=== PATIENT | male | born 1965 | race Caucasian/White ===

== ENCOUNTER 2017-11-23 17:49 | Emergency (ER) | payer BC ==
[2017-11-23] MEDS ORDERED: Adacel Vial IM ONE ×2 (18:03→18:12)
[2017-11-23] MEDS ORDERED: BACIGUENT PACKET TP ONE (18:04)
[2017-11-23] MEDS ORDERED: BACIGUENT PACKET ONE (18:11)
--- NOTE | 2017-11-23 18:11 | ERPHSYRPT ---
- History of Present Illness Time Seen by Provider: 11/23/17 18:04 Source: patient Exam Limitations: no limitations Physician History: 52-year-old white male arrives with complaint that he stepped on a keira nail proximally one half hour prior to arrival. Patient states his tetanus is not up-to-date and he wants his tetanus updated. He denies any other complaints. Past medical history is negative. Past surgical history is negative. Method of Injury: other (stepped on a keira nail left foot) Occurred: just prior to arrival Quality: other (minimal pain) Lower Extremities Pain: foot: left Modifying Factors: Improves With: nothing Associated Symptoms: none - Review of Systems Constitutional: No Fever, No Chills Eyes: No Symptoms Ears, Nose, & Throat: No Symptoms Respiratory: No Cough, No Dyspnea Cardiac: No Chest Pain, No Edema, No Syncope Abdominal/Gastrointestinal: No Abdominal Pain, No Nausea, No Vomiting, No Diarrhea Genitourinary Symptoms: No Dysuria Musculoskeletal: Other (puncture wound left foot) Skin: Other (Small puncture wound left foot) Neurological: No Dizziness, No Focal Weakness, No Sensory Changes Psychological: No Symptoms Endocrine: No Symptoms All Other Systems: Reviewed and Negative - Past Medical History Pertinent Past Medical History: No - Physical Exam General Appearance: alert Eyes, Ears, Nose, Throat Exam: moist mucous membranes Neck Exam: non-tender, supple Cardiovascular/Respiratory Exam: chest non-tender, normal breath sounds, regular rate/rhythm, no respiratory distress Gastrointestinal/Abdominal Exam: non-tender, guarding Back Exam: normal inspection, No vertebral tenderness Hips Exam: bilateral: non-tender, normal inspection, normal range of motion, no evidence of injury Legs Exam: bilateral leg: non-tender, normal inspection, normal range of motion , no evidence of injury Knees Exam: bilateral knee: non-tender, normal inspection, normal range of motion, no evidence of injury Ankle Exam: bilateral ankle: non-tender, normal inspection, normal range of motion, no evidence of injury Foot Exam: right foot: normal inspection, left foot: other (Small, barely visible puncture wound plantar surface left foot overlying the fourth tofifth M TP joint), bilateral foot: non-tender, normal range of motion, no evidence of injury Neuro/Tendon Exam: normal sensation, normal motor functions Mental Status Exam: alert, oriented x 3, cooperative Skin Exam: normal color, warm, dry, other (Small, barely visible puncture wound plantar surface left foot overlying the fourth to fifth MTP joint) SpO2 Interpretation: normal (98%) - Course Nursing assessment & vital signs reviewed: Yes Ordered Tests: Active Orders 24 hr Category Date Time Status Wound Care STAT Care 11/23/17 18:04 Active Medication Summary Generic Name Dose Route Start Last Admin Trade Name Freq PRN Reason Stop Dose Admin Bacitracin Zinc 0.9 gm 11/23/17 18:04 Baciguent Packet TP 11/23/17 18:05 STAT ONE Discontinued Medications Generic Name Dose Route Start Last Admin Trade Name Freq PRN Reason Stop Dose Admin Diphtheria/Tetanus/Acell Pertussis 0.5 ml 11/23/17 18:03 Adacel Vial IM 11/23/17 18:04 .ONCE ONE - Progress Progress: improved Progress Note: 11/23/17 18:08 This is a 52-year-old white male arrives with complaint of puncture wound of his left foot. He states that he stepped on a keira nail approximately one half hour prior to arrival. Patient states his tetanus is not up to date. He would like his tetanus updated. Patient apparently has a father who had had tetanus in the past. Patient is denying any other complaints. I asked the nurse clean the left foot apply bacitracin and obtain the patient's DTaP. - Departure Time of Disposition: 18:09 Departure Disposition: Home Clinical Impression: Puncture wound of left foot Qualifiers: Encounter type: initial encounter Qualified Code(s): S91.332A - Puncture wound without foreign body, left foot, initial encounter Condition: Fair Critical Care Time: No Referrals: JAVIER PERALES [Primary Care Provider] - Additional Instructions: Return home. Bacitracin to puncture wound until healed. Tylenol every 4 hours as needed for pain. Follow-up with your family doctor or return if problems. Return for acute distress or for severe symptoms.
[2017-11-23 18:28] VITALS: BP 174/88; PULSE 72; O2SAT 98
== END 2017-11-23 18:27 | disposition home or self-care (01) ==
LOC: ED 17:49
DX: S91.332A Puncture wound without foreign body, left foot, initial encounter (principal); W22.8XXA Striking against or struck by other objects, initial encounter; W45.0XXA Nail entering through skin, initial encounter; Y93.01 Activity, walking, marching and hiking
CPT/HCPCS: 90471; 90715; 99283; A9270-GY

== ENCOUNTER 2019-02-15 11:46 | Emergency (ER) | payer BC ==
[2019-02-15 11:56] VITALS: O2SAT 98
[2019-02-15] MEDS ORDERED: TETRACAINE 0.5% STERI-UNIT SOL OP ONE (12:45)
[2019-02-15] MEDS ORDERED: Fluor-I-Strip/Ful-Flo OP ONE ×2 (12:45→13:13)
[2019-02-15] MEDS ORDERED: Eye-Stream Solution ONE (12:45)
[2019-02-15 13:13] VITALS: BP 132/81; PULSE 90
[2019-02-15] MEDS ORDERED: Eye-Stream Solution OP ONE (13:13)
--- NOTE | 2019-02-15 13:13 | ERPHSYRPT ---
- History of Present Illness Time Seen by Provider: 02/15/19 12:47 Source: patient Exam Limitations: no limitations Patient Subjective Stated Complaint: Pt states "It felt like i had something in my right eye and I rubbed it and now it feels like I have a scratch in there." Triage Nursing Assessment: Pt presnted alert and oriented X 3, skin pwd Pt ambulates with an upright steady giat, able to speak in clear full sentences Pt right eye slightly red and swollen. Physician History: 53 yo presented after rubbing right eye 2 days ago, was painful yesterday with redness and now is having some swelling around but redness and pain are better. no visual disturbance.doesnt use contacts. uptodate with tetanus Timing/Duration: day(s) (2) Location: right eye Severity: moderate Apparent Injury: yes Associated Symptoms: pain, burning, itching, redness, eyelid swelling, No decreased vision, No blurred vision, No double vision Visual Assistive Devices: None Allergies/Adverse Reactions: No Known Drug Allergies Allergy (Unverified 11/23/17 18:13) Hx Tetanus, Diphtheria Vaccination/Date Given: Yes Hx Influenza Vaccination/Date Given: No Hx Pneumococcal Vaccination/Date Given: No Immunizations Up to Date: Yes - Review of Systems Constitutional: No Symptoms Eyes: Discharge, Eye Pain, Eye Redness Ears, Nose, & Throat: No Symptoms Respiratory: No Symptoms Cardiac: No Symptoms Abdominal/Gastrointestinal: No Symptoms Genitourinary Symptoms: No Symptoms Musculoskeletal: No Symptoms Skin: No Symptoms Neurological: No Symptoms Endocrine: No Symptoms Hematologic/Lymphatic: Easy Bruising - Past Medical History Pertinent Past Medical History: No - Past Surgical History Past Surgical History: Yes Musculoskeletal: Orthopedic Surgery Other Surgical History: broken arm - Social History Smoking Status: Never smoker Exposure to second hand smoke: Yes Drug Use: none Patient Lives Alone: No - Nursing Vital Signs Nursing Vital Signs: Initial Vital Signs Temperature 98.2 F 02/15/19 11:52 Pulse Rate 100 H 02/15/19 11:52 Respiratory Rate 16 02/15/19 11:52 Blood Pressure 173/80 02/15/19 11:52 O2 Sat by Pulse Oximetry 98 02/15/19 11:52 Pain Scale Pain Intensity 4 - Physical Exam General Appearance: no apparent distress, alert Vision Acuity Degree Evaluation Phase: Uncorrected Vision Acuity Right Eye: 20/50 Vision Acuity Left Eye: 20/50 Eye Exam: right eye: corneal abrasion, eyelid inflammation, bilateral eye: normal inspection, PERRL, EOMI Ears, Nose, Throat Exam: normal ENT inspection, TMs normal Neck Exam: normal inspection Respiratory Exam: normal breath sounds, lungs clear Cardiovascular Exam: regular rate/rhythm, normal heart sounds Neurologic: alert, oriented x 3, cooperative Skin Exam: normal color SpO2: 98 O2 Delivery: Room Air - Course Nursing assessment & vital signs reviewed: Yes Ordered Tests: Medication Summary Discontinued Medications Generic Name Dose Route Start Last Admin Trade Name Isi PRN Reason Stop Dose Admin Eye Irrigation Solution Confirm 02/15/19 12:45 Eye-Stream Solution Administered 02/15/19 12:46 Dose 30 ml .ROUTE .STK-MED ONE Fluorescein Sodium Confirm 02/15/19 12:45 Jifch-P-Cmbdz/Ful-Hermes Administered 02/15/19 12:46 Dose 1 mg OP .STK-MED ONE Tetracaine HCl Confirm 02/15/19 12:45 Tetracaine 0.5% Steri-Unit Trish Administered 02/15/19 12:46 Dose 4 ml OP .STK-MED ONE - Progress Progress: unchanged Progress Note: 02/15/19 13:12 after tetracaine , flourescene stain showed uptake in the 7-9 oclock position. will treat with ofloxacin eye drops and out patient ophthalmology/optometry follow up. Counseled pt/family regarding: diagnosis, need for follow-up - Departure Departure Disposition: Home Clinical Impression: Scratch of cornea Qualifiers: Encounter type: initial encounter Laterality: right Qualified Code(s): S05.01XA - Injury of conjunctiva and corneal abrasion without foreign body, right eye, initial encounter Condition: Stable Critical Care Time: No Referrals: JAVIER PERALES [Primary Care Provider] - Instructions: Foreign Body in Eye (DC), Corneal Abrasion (DC) Additional Instructions: follow up with production supv/line palletizer for re evaluation in the morning. take tylenol/ibuprofen as needed. return for any worsening. Prescriptions: Ofloxacin Ophth 5 ml [Ocuflox OPHTHALMIC 5 ML] 2 misc OP QID #1 bottle
[2019-02-15] MEDS ORDERED: TETRACAINE 0.5% STERI-UNIT SOL OP STA (13:14)
== END 2019-02-15 13:41 | disposition home or self-care (01) ==
LOC: ED 11:46
DX: S05.01XA Injury of conjunctiva and corneal abrasion without foreign body, right eye, initial encounter (principal)
CPT/HCPCS: 99283; A9270-GY

== ENCOUNTER 2024-09-21 08:28 | Emergency (ER) | payer BC ==
[2024-09-21 08:38] VITALS: BP 176/99; PULSE 69; TEMP 97.4
[2024-09-21] MEDS ORDERED: Ntg 0.2MG/Ml in D5W GLASS*** 250 ML IV ONE (08:44)
[2024-09-21] MEDS ORDERED: Heparin 25,000 units/D5W: USE ORDER SET PROTO 25,000 UNITS/250 ML BAG IV ONE (08:44)
[2024-09-21] MEDS ORDERED: HEPARIN 5000 UNITS/0.5 ML (HIGH RISK MED) ONE (08:44)
[2024-09-21] MEDS ORDERED: BABY ASPIRIN 81 MG CHEW ONE (08:44)
[2024-09-21 08:45] LABS: BASOPHIL % 0.4 % (0.2-1.2); Basophil (Absolute #) 0.03 x10^3/uL (0.01-0.08); Eosinophil (Absolute #) 0.06 x10^3/uL (0.04-0.54); Hematocrit 44.6 % (40.1-51.0); Hemoglobin 15.3 g/dL (13.7-17.5); IMMATURE GRAN # 0.03 x10^3u/L (0.001-0.031); IMMATURE GRAN % 0.4 % (0.001-0.429); Lymphocyte (Absolute #) 1.58 x10^3/uL (1.32-3.57); Mean Corpuscular Hemoglobin 30.4 pg (25.7-32.2); Mean Corpuscular Hgb Concent. 34.3 g/dL (32.3-36.5); Monocyte (Absolute #) 0.44 x10^3/uL (0.30-0.82); NUCLEATED RBC # 0.00 x10^3u/L (0.00-0.012); NUCLEATED RBC % 0.0 % (0.00-0.2); Platelet Count 217 x10^3/uL (163-337); Red Blood Count 5.04 x10^6/uL (4.63-6.08); White Blood Count 7.2 x10^3/uL (4.23-9.07)
[2024-09-21] MEDS: Ntg 0.2MG/Ml in D5W GLASS*** 250 ML IV PRN (08:45)
[2024-09-21] MEDS: BABY ASPIRIN 81 MG CHEW PO ONE (08:45)
--- NOTE | 2024-09-21 08:51 | ERPHSYRPT ---
- History of Present Illness Time Seen by Provider: 09/21/24 08:46 Source: patient Exam Limitations: no limitations Patient Subjective Stated Complaint: chest pain Triage Nursing Assessment: pt brought to the ER by his , hypertensive, rates pain as 5/10, ischemia shown on EKG, denies SOB, chest pain radiates to the left shoulder and down the left arm, pulses normal, skin n/w/d Physician History: Patient is a 59-year-old male diabetic, BMI of 39.5 presents to the emergency department for evaluation of chest pain. Chest pain started this morning. Pain described as an ache that radiates to his left shoulder and left arm. No associated nausea vomiting or diaphoresis at this time. Symptoms are constant. Symptoms are moderate in intensity. No specific worsening improving factors. Patient voices no other complaints or concerns at this time. Portions of this note were created with voice recognition technology. There may be grammatical, spelling, punctuation or sound alike errors Timing/Duration: today Severity: moderate Associated Symptoms: denies symptoms Allergies/Adverse Reactions: No Known Drug Allergies Allergy (Verified 09/21/24 08:38) Home Medications: Losartan Potassium [Cozaar] 25 mg PO DAILY 09/21/24 [History] Paroxetine HCl 20 mg [Paxil 20 MG] 20 mg PO DAILY 09/21/24 [History] Hx Tetanus, Diphtheria Vaccination/Date Given: Yes Hx Influenza Vaccination/Date Given: No Hx Pneumococcal Vaccination/Date Given: No Travel Risk - International Travel Have you traveled outside of the country in past 3 weeks: No - Emerging Infectious Disease Are you exhibiting symptoms associated with any current EIDs: No - Review of Systems Constitutional: No Symptoms, No Fever, No Chills Eyes: No Symptoms Ears, Nose, & Throat: No Symptoms Respiratory: No Symptoms, No Cough, No Dyspnea Cardiac: No Symptoms, No Chest Pain, No Edema, No Syncope Abdominal/Gastrointestinal: No Symptoms, No Abdominal Pain, No Nausea, No Vomiting, No Diarrhea Genitourinary Symptoms: No Symptoms, No Dysuria Musculoskeletal: No Symptoms, No Back Pain, No Neck Pain Skin: No Symptoms, No Rash Neurological: No Symptoms, No Dizziness, No Focal Weakness, No Sensory Changes Psychological: No Symptoms Endocrine: No Symptoms Hematologic/Lymphatic: No Symptoms Immunological/Allergic: No Symptoms All Other Systems: Reviewed and Negative - Past Medical History Pertinent Past Medical History: Yes Cardiac History: Hypertension Endocrine Medical History: Diabetes Type II, Hypothyroidism - Past Surgical History Past Surgical History: Yes Musculoskeletal: Orthopedic Surgery Other Surgical History: broken arm - Social History Smoking Status: Never smoker Exposure to second hand smoke: Yes Drug Use: none - Social Determinants of Health Will the patient participate in the screening: Yes Do you worry about a steady place to live?: No Do you have any problems with any of the following?: No known problems In the past 12 months,have you had to go without utilities?: No Transportation Issues: No Has anyone in your support network made you feel unsafe?: No Have you or anyone in your house had to go w/o enough food: No - Nursing Vital Signs Nursing Vital Signs: Initial Vital Signs Temperature 97.4 F 09/21/24 08:32 Pulse Rate 69 09/21/24 08:32 Blood Pressure 176/99 09/21/24 08:32 O2 Sat by Pulse Oximetry 99 09/21/24 08:32 Pain Scale Pain Intensity 5 - Physical Exam General Appearance: no apparent distress, alert Eye Exam: PERRL/EOMI, eyes nml inspection Ears, Nose, Throat Exam: normal ENT inspection, moist mucous membranes Neck Exam: normal inspection, full range of motion Respiratory Exam: normal breath sounds, lungs clear, airway intact, No respiratory distress Cardiovascular Exam: regular rate/rhythm, normal heart sounds, normal peripheral pulses Gastrointestinal/Abdomen Exam: soft, normal bowel sounds, No tenderness, No mass Back Exam: normal inspection, normal range of motion, No CVA tenderness, No vertebral tenderness Extremity Exam: normal inspection Neurologic Exam: alert, oriented x 3, cooperative, normal mood/affect, sensation nml, No motor deficits Skin Exam: normal color, warm, dry, No rash Lymphatic Exam: No adenopathy SpO2 Interpretation: normal SpO2: 99 O2 Delivery: Room Air - Course Nursing assessment & vital signs reviewed: Yes EKG Interpreted by Me: RATE (72), Sinus Rhythm, NORMAL AXIS, NORMAL INTERVALS, NORMAL QRS (ST segment depression inferiorly with associated elevation anterior laterally.) - Radiology Exams Chest X-ray Interpretation: Interpreted by me (No acute findings on chest x-ray) Ordered Tests: Active Orders 24 hr Category Date Time Status Program Strategist STAT Care 09/21/24 08:38 Active EKG-ER Only STAT Care 09/21/24 08:38 Active IV Insertion STAT Care 09/21/24 08:38 Active Pulse Oximetry (ED) STAT Care 09/21/24 08:38 Active CHEST 1 VIEW (PORTABLE) Stat Exams 09/21/24 08:38 Taken CBC W DIFF Stat Lab 09/21/24 08:40 Completed CMP Stat Lab 09/21/24 08:40 Received NT PRO BNPII Stat Lab 09/21/24 08:40 Received TROPONIN Q4H Lab 09/21/24 08:40 Received TROPONIN Q4H Lab 09/21/24 12:45 Ordered TROPONIN Q4H Lab 09/21/24 16:45 Ordered UA W/RFX UR CULTURE Stat Lab 09/21/24 08:38 Ordered Medication Summary Generic Name Dose Route Start Last Admin Trade Name Freq PRN Reason Stop Dose Admin Nitroglycerin/Dextrose 250 mls @ 1.5 mls/hr 09/21/24 08:39 09/21/24 08:45 Ntg 0.2mg/Ml In D5w Glass IV 10/21/24 08:38 5 mcg/min .Q24H PRN 1.5 mls/hr CHEST PAIN Administration Protocol 5 MCG/MIN Discontinued Medications Generic Name Dose Route Start Last Admin Trade Name Freq PRN Reason Stop Dose Admin Aspirin 243 mg 09/21/24 08:40 09/21/24 08:45 Aspirin 81 Mg Tab.Chew PO 09/21/24 08:41 243 mg STAT ONE Administration Aspirin Confirm 09/21/24 08:44 Aspirin 81 Mg Tab.Chew Administered 09/21/24 08:45 Dose 243 mg .ROUTE .STK-MED ONE Heparin Sodium (Beef Lung) Confirm 09/21/24 08:44 Heparin 5000 Units/0.5 Ml 5,000 Unit/0.5 Ml Syr Administered 09/21/24 08:45 Dose 5,000 unit .ROUTE .STK-MED ONE Heparin Sodium/Dextrose Confirm 09/21/24 08:44 Heparin 25,000 Units/D5w: Use Order Set Branden Administered 09/21/24 08:45 Dose 25,000 units in 250 mls @ ud IV .STK-MED ONE Lab/Rad Data: Laboratory Result Diagrams 09/21/24 08:40 Laboratory Results 09/21/24 Range/Units 08:40 WBC 7.2 (4.23-9.07) x10^3/uL RBC 5.04 (4.63-6.08) x10^6/uL Hgb 15.3 (13.7-17.5) g/dL Hct 44.6 (40.1-51.0) % MCV 88.5 (79.0-92.2) fL MCH 30.4 (25.7-32.2) pg MCHC 34.3 (32.3-36.5) g/dL RDW 13.2 (11.6-14.4) % Plt Count 217 (163-337) x10^3/uL MPV 11.1 (9.4-12.4) fL Gran % 70.2 H (34.0-67.9) % Immature Gran % (Auto) 0.4 (0.001-0.429) % Nucleat RBC Rel Count 0.0 (0.00-0.2) % Eos # (Auto) 0.06 (0.04-0.54) x10^3/uL Immature Gran # (Auto) 0.03 (0.001-0.031) x10^3u/L Absolute Lymphs (auto) 1.58 (1.32-3.57) x10^3/uL Absolute Monos (auto) 0.44 (0.30-0.82) x10^3/uL Absolute Nucleated RBC 0.00 (0.00-0.012) x10^3u/L Lymphocytes % 22.1 (21.8-53.1) % Monocytes % 6.1 (5.3-12.2) % Eosinophils % 0.8 (0.8-7.0) % Basophils % 0.4 (0.2-1.2) % Absolute Granulocytes 5.02 (1.78-5.38) x10^3/uL Basophils # 0.03 (0.01-0.08) x10^3/uL - Progress Progress: improved Progress Note: Patient is a 59-year-old male BMI of 39.5 presents to our emergency department for evaluation of chest pain that started this morning. Pain radiating to his arm. Patient took 1 aspirin this morning. Upon arrival to our ED initial EKG reveals ST elevation at the anterior lateral leads with reciprocal changes inferiorly. Repeat EKG revealed dynamic changes. Patient received an additional 3 aspirin nitro drip and heparin bolus with a drip as well. STEMI called. I spoke to ER physician Dr. Quintana at [facility] on 8:25 AM. Transfer accepted. Patient advised of the concerns and the significant changes on the EKG. I independently reviewed the chest x-ray. No acute findings observed. at bedside was informed as well. Patient states he has a history of hypothyroidism. Patient has a underwear cutter Dr. Epperson that he has seen in the past for heart palpitations. The palpitations at that point were determined to be related to his hypothyroidism. Patient has not had cholesterol checked in some time. Given patient's chest pain cardiac risk factors EKG changes patient transferred to higher level of care. Plan of care discussed with patient and family. They agree to transfer to [facility] for further evaluation and treatment. Portions of this note were created with voice recognition technology. There may be grammatical, spelling, punctuation or sound alike errors Complexity of problem addressed is moderate acute complicated. Critical care time is just greater than 30 minutes. Immediate intervention required to prevent further deterioration as patient is experiencing a ST segment elevation myocardial infarction. Complexity of data reviewed and analyzed as extensive. Test ordered test reviewed results analyzed and correlated clinically with history and physical exam. Risk of complication or risk of morbidity/mortality of patient management is high. Patient requires transfer to higher level of care. Vital stable. Time spent to transfer patient approximately 20 minutes. Plan of care established for shared decision making. No social determinants of health present to impede follow-up. Portions of this note were created with voice recognition technology. There may be grammatical, spelling, punctuation or sound alike errors 09/21/24 09:01 Counseled pt/family regarding: lab results, diagnosis, rad results - Departure Departure Disposition: Transfer Clinical Impression: Chest pain, Acute coronary syndrome, STEMI (ST elevation myocardial infarction) Condition: Stable Critical Care Time: Yes Critical Care Time(excluding separately billable procedures): Critical 30-74 mins
[2024-09-21 09:08] LABS: Calcium 9.4 mg/dL (8.4-10.2); Carbon Dioxide 28.0 mmol/L (22-30); Creatinine 1 1.11 mg/dL (0.66-1.25); EST GLOMERULAR FILTRATION RATE 75.6 ML/MIN; Glucose 149.0 mg/dL (74-106); NT PRO BNPII 85.0 pg/mL (<300); Potassium 4.1 mmol/L (3.5-5.1); SGOT/AST 24.0 U/L (17-59); SGPT/ALT 28.0 U/L (0-50); Total Protein 8.0 g/dL (6.3-8.2)
--- NOTE | 2024-09-21 09:11 | XRAY ---
Indication: Pain. Comparison: March 24, 2021 Portable apical lordotic chest inflated and remains clear. Heart not enlarged for AP portable technique. Bony thorax intact again with mild degenerative changes. No new/acute findings.
[2024-09-21 09:12] VITALS: O2SAT 99
[2024-09-21 09:32] LABS: INR 0.98 (0.8-3.0); PROTIME 10.7 SECONDS (9.4-12.5); PTT 24.2 SECONDS (25.1-36.5)
== END 2024-09-21 08:58 | disposition short-term general hospital (02) ==
LOC: ED 08:28
DX: I21.3 ST elevation (STEMI) myocardial infarction of unspecified site (principal); I24.9 Acute ischemic heart disease, unspecified; R07.9 Chest pain, unspecified; I10 Essential (primary) hypertension; E11.9 Type 2 diabetes mellitus without complications; Z79.899 Other long term (current) drug therapy